=== PATIENT | female | born 1985 | race Caucasian/White ===

== ENCOUNTER 2017-07-05 09:34 | Emergency (ER) | payer OTHER ==
[2017-07-05 11:00] VITALS: BP 95/63
--- NOTE | 2017-07-05 11:16 | UC ---
Respiratory Complaint HPI - HPI Summary HPI Summary: cough x 7 days nasal congestion , bilateral ear fullness, no fever, no chills - History of Current Complaint Chief Complaint: UCGeneralIllness Stated Complaint: COUGH SORE THROAT EARS Time Seen by Provider: 07/05/17 10:54 Hx Obtained From: Patient Hx Last Menstrual Period: 07/03/17 Onset/Duration: Gradual Onset Timing: Constant Severity Initially: Moderate Severity Currently: Moderate Pain Intensity: 4 Character: Cough: Nonproductive Aggravating Factors: Exertion, Deep Breaths Associated Signs And Symptoms: Positive: URI, Nasal Congestion. Negative: Fever , Chills, Dizziness, Calf Pain, Calf Swelling, Edema - Allergies/Home Medications Allergies/Adverse Reactions: Allergies Allergy/AdvReac Type Severity Reaction Status Date / Time MS Acetaminophen AdvReac itching, Verified 07/05/17 10:53 [From Tylenol with Codeine swelling #3] in hands MS Codeine AdvReac itching, Verified 07/05/17 10:53 [From Tylenol with Codeine swelling #3] in hands Home Medications: Home Medications Naproxen TAB* [Naprosyn 250 mg TAB*] 500 mg PO BID PRN 07/05/17 [History Confirmed 07/05/17] PMH/Surg Hx/FS Hx/Imm Hx Previously Healthy: Yes - Surgical History Surgical History: Yes Surgery Procedure, Year, and Place: carpal tunnel/bilat. - Family History Known Family History: Positive: None Negative: Respiratory Disease - Social History Alcohol Use: Rare Substance Use Type: None Smoking Status (MU): Heavy Every Day Tobacco Smoker Type: Cigarettes Amount Used/How Often: 1/2 PPD Length of Time of Smoking/Using Tobacco: Since Age 14 Household Exposure Type: Cigarettes - Immunization History Most Recent Influenza Vaccination: [id number] Review of Systems Constitutional: Negative Skin: Negative Eyes: Negative ENT: Nasal Discharge Respiratory: Cough Cardiovascular: Negative Gastrointestinal: Negative Is Patient Immunocompromised?: No All Other Systems Reviewed And Are Negative: Yes Physical Exam Triage Information Reviewed: Yes Appearance: Well-Appearing, No Pain Distress, Well-Nourished Vital Signs: Initial Vital Signs Temp 98.6 F 07/05/17 10:52 Pulse 98 07/05/17 10:52 Resp 18 07/05/17 10:52 BP 95/63 07/05/17 10:52 Pulse Ox 98 07/05/17 10:52 Vital Signs Reviewed: Yes Eyes: Positive: Conjunctiva Clear ENT: Positive: Normal ENT inspection, Hearing grossly normal, Pharynx normal, Nasal drainage, TMs normal Neck exam: Normal Neck: Positive: Supple, Nontender, No Lymphadenopathy Respiratory: Positive: Chest non-tender, Lungs clear, Normal breath sounds, No respiratory distress Cardiovascular: Positive: RRR, No Murmur, Pulses Normal Skin Exam: Normal UC Diagnostic Evaluation - Laboratory O2 Sat by Pulse Oximetry: 98 Respiratory Course/Dx - Differential Dx/Diagnosis Provider Diagnoses: uri Discharge - Discharge Plan Condition: Stable Disposition: HOME Patient Education Materials: Upper Respiratory Infection (ED) Referrals: KYLAH Ta [Primary Care Provider] - If Needed
== END 2017-07-05 11:18 | disposition home or self-care (01) ==
LOC: UCCORT 09:34
DX: J06.9 Acute upper respiratory infection, unspecified (principal); F17.210 Nicotine dependence, cigarettes, uncomplicated
CPT/HCPCS: 99211; G0463

== ENCOUNTER 2018-11-06 09:05 | Emergency (ER) | payer OTHER ==
[2018-11-06 09:24] VITALS: BP 126/71
--- NOTE | 2018-11-06 09:24 | UC ---
Hand/Wrist HPI - HPI Summary HPI Summary: Patient presents to urgent care for evaluation of her right index finger. Patient states she punched a wall last Tuesday. Patient states has pain with movement since that time. Patient also some edema. No ecchymosis. Patient went to her primary care doctor on Tuesday. Recommended she come for images but she didn't have time she came today. Patient's taken Motrin intermittently was short-term relief. Patient is right-hand dominant. Patient without previous injury to same. Pt states she is not . Patient's medications reviewed this visit. - History Of Current Complaint Stated Complaint: RT HAND INJURY Time Seen by Provider: 11/06/18 09:10 Hx Obtained From: Patient Hx Last Menstrual Period: 07/03/17 - Allergies/Home Medications Allergies/Adverse Reactions: Allergies Allergy/AdvReac Type Severity Reaction Status Date / Time acetaminophen Allergy Unknown ITCHING, Verified 11/06/18 09:26 [From Tylenol-Codeine #3] SWELLING OF HANDS codeine Allergy Unknown ITCHING, Verified 11/06/18 09:26 [From Tylenol-Codeine #3] SWELLING OF HANDS Home Medications: Home Medications Amoxicillin PO (*) [Amoxicillin 500 MG CAP*] 500 mg PO Q12H 11/06/18 [History Confirmed 11/06/18] PMH/Surg Hx/FS Hx/Imm Hx Previously Healthy: Yes - Surgical History Surgical History: Yes Surgery Procedure, Year, and Place: carpal tunnel/bilat. - Family History Known Family History: Positive: None, Non-Contributory Negative: Respiratory Disease - Social History Occupation: Works From/At Home Lives: With Family Alcohol Use: Rare Substance Use Type: None Smoking Status (MU): Heavy Every Day Tobacco Smoker Type: Cigarettes Amount Used/How Often: 1/2 PPD Length of Time of Smoking/Using Tobacco: Since Age 14 Household Exposure Type: Cigarettes - Immunization History Most Recent Influenza Vaccination: [id number] Review of Systems All Other Systems Reviewed And Are Negative: Yes Constitutional: Positive: Negative Skin: Positive: Other - edema right index Musculoskeletal: Positive: Other: - right index pain Is Patient Immunocompromised?: No Physical Exam - Summary Physical Exam Summary: Vital Signs Reviewed: Yes A+Ox3, no distress Eyes: Conjunctiva Clear ENT: Hearing grossly normal neck: supple Respiratory: Positive: No respiratory distress, No accessory muscle use Cardiovascular: skin color reflect adequate perfusion 2+ radial 2+ ulnar CBT < 2 sec all digits Musculoskeletal Exam: + flex/ext wrist No pain MC/C/ MCP all digits except index. Pt with pain with full extension ant MCP and PIP. mild edema. no ecchymosis, no edema + with diffuse tenderness index - no erythema, no open wounds Neurological: Positive: Alert, ambulatory without difficulty + gross sensation throughout fingers Psychological: Positive: Normal Response To Family Skin: Positive: no rash, no ecchymosis Triage Information Reviewed: Yes Vital Signs: Initial Vital Signs Temp 97.3 F 11/06/18 09:18 Pulse 78 11/06/18 09:18 Resp 18 11/06/18 09:18 BP 126/71 11/06/18 09:18 Pulse Ox 100 11/06/18 09:18 Diagnostics - Radiology No standard instances Radiology Interpretation Completed By: Radiologist - Patient Name: ROSE MUJICA Medical Record#: [id number] Ordering Physician: Clarice Isaacs MD Acct.#: [id number] : 1985 Age: 33 Sex: F Location: [facility] Exam Date: 11/06/18929 ADM Status: REG ER Order Information: FINGER RIGHT 2ND ( INDEX) Accession Number: [id number] CPT: 33051 INDICATION: Right index finger injury. TECHNIQUE: 3 views of the right index finger were obtained. FINDINGS: The bones are normal alignment. No fracture is seen. Joint spaces appear maintained. IMPRESSION: NO EVIDENCE FOR FRACTURE. <Electronically signed by Jemal Kelly MD in OV> 11/06/18944 Dictated By: Jemal Kelly MD Dictated Date/Time: 944 Transcribed Date/Time: 11/06/18942 Copy to: CC:Clarice Isaacs MD; Shadia Santo NP Imaging - [facility] [address] [address] ph ) ph ([phone]) ph ([phone]) This report is only to be considered final once signed by the Provider(s) as displayed in the "<Electronically Signed by >" field (s). Absence of a signature indicates the report is in a draft status and still needs to be finalized. In the event this document was created by someone other than the signing Provider, the individual initiating the document will be listed in the "Entered by:" or "Dictated by:" morgan. 1 of 1 Hand/Wrist Course/Dx - Course Course Of Treatment: Pt presents for evaluation of index right hand s/p punching wall on Tuesday. Pt is RHD. Pt with ongoing pain with movement. Pt has taken Motrin with short term relief. Pt denies paresthesia No Pt with pain circumferential right index finger - mild edema, no ecchymosis. imaging no fx splint applied by OMAIRA Nguyễn Q6hr ice elevate f.u with PCP/ortho if sx persist - Differential Dx/Diagnosis Provider Diagnosis: Finger sprain Discharge - Sign-Out/Discharge Documenting (check all that apply): Patient Departure All imaging exams completed and their final reports reviewed: Yes - Discharge Plan Condition: Stable Disposition: HOME Patient Education Materials: Finger Sprain (ED) Referrals: Ghanshyam Padilla MD [Medical Doctor] - (5-7 days if pain persists) Shadia Santo NP [Primary Care Provider] - Additional Instructions: - wear splint as much as possible for comfort and support over the next 4-5 days. -apply ice (20 min at a time) every 2-3 hours for the next 2 days -Okay to alternate ibuprofen (Advil, Motrin) and Tylenol every 3 hours for pain. Take with food. Do NOT take for more than 4-5 days - elevate your hand to help with swelling and pain -contact your primary doctor or the treasury specialist to schedule a follow- up appointment if your pain continues - Billing Disposition and Condition Condition: STABLE Disposition: Home
[2018-11-07 14:24] LABS: HIV 4th Generation Negative (Negative)
== END 2018-11-06 10:16 | disposition home or self-care (01) ==
LOC: UCCORT 09:05
DX: S63.610A Unspecified sprain of right index finger, initial encounter (principal); W22.09XA Striking against other stationary object, initial encounter; F17.210 Nicotine dependence, cigarettes, uncomplicated; Z88.5 Allergy status to narcotic agent
CPT/HCPCS: 36415; 73140; 86703; 87389; 99212; G0463

== ENCOUNTER 2019-05-23 10:34 | Emergency (ER) | payer OTHER ==
[2019-05-23 11:01] VITALS: BP 124/74
--- NOTE | 2019-05-23 11:32 | UC ---
Lower Extremity/Ankle HPI - HPI Summary HPI Summary: 33-year-old female presents with complaints of right fifth toe pain. 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 Describes pain as a constant ache. Worsens with ambulation. Has noted some bruising. Reports previous injury to the toe this past summer. Denies any numbness or tingling. - History of Current Complaint Chief Complaint: UCLowerExtremity Stated Complaint: RT PINKY TOE INJURY Time Seen by Provider: 05/23/19 11:31 Hx Obtained From: Patient Hx Last Menstrual Period: 05/21/19 Pain Intensity: 8 - Allergies/Home Medications Allergies/Adverse Reactions: Allergies Allergy/AdvReac Type Severity Reaction Status Date / Time acetaminophen Allergy Unknown ITCHING, Verified 05/23/19 11:01 [From Tylenol-Codeine #3] SWELLING OF HANDS codeine Allergy Unknown ITCHING, Verified 05/23/19 11:01 [From Tylenol-Codeine #3] SWELLING OF HANDS Home Medications: Home Medications Acetaminophen [Tylenol Extra Strength] 2 tab PO ONCE 05/23/19 [History Confirmed 05/23/19] PMH/Surg Hx/FS Hx/Imm Hx Previously Healthy: Yes - Denies significant PMH - Surgical History Surgical History: Yes Surgery Procedure, Year, and Place: carpal tunnel/bilat. - Family History Known Family History: Positive: Non-Contributory - Social History Occupation: Works From/At Home Lives: With Family Alcohol Use: Rare Substance Use Type: None Smoking Status (MU): Heavy Every Day Tobacco Smoker Type: Cigarettes Amount Used/How Often: 1/2 PPD Length of Time of Smoking/Using Tobacco: Since Age 14 Household Exposure Type: Cigarettes - Immunization History Most Recent Influenza Vaccination: [id number] Review of Systems All Other Systems Reviewed And Are Negative: Yes Constitutional: Positive: Negative Skin: Positive: Bruising Respiratory: Positive: Negative Cardiovascular: Positive: Negative Gastrointestinal: Positive: Negative Genitourinary: Positive: Negative Motor: Negative: Weakness Neurovascular: Negative: Decreased Sensation Musculoskeletal: Positive: Other: - See HPI Neurological: Positive: Negative Is Patient Immunocompromised?: No Physical Exam - Summary Physical Exam Summary: GENERAL APPEARANCE: Well developed, well nourished, alert and cooperative, and appears to be in no acute distress. CARDIAC: Normal S1 and S2. No S3, S4 or murmurs. Rhythm is regular. There is no peripheral edema, cyanosis or pallor. Extremities are warm and well perfused. Capillary refill is less than 2 seconds. Peripheral pulses intact. LUNGS: Clear to auscultation without rales, rhonchi, wheezing or diminished breath sounds. ABDOMEN: Positive bowel sounds. Soft, nondistended, nontender. No guarding or rebound. No masses or hepatosplenomegally. MUSKULOSKELETAL: Normal muscular development. Limping gait. EXTREMITIES: Tenderness at the base of the right 5th toe without gross deformity , edema, or ecchymosis. Circulation and sensation intact. SKIN: Skin normal color, texture and turgor with no lesions or eruptions. Triage Information Reviewed: Yes Vital Signs: Initial Vital Signs Temp 98.2 F 05/23/19 10:56 Pulse 83 05/23/19 10:56 Resp 16 05/23/19 10:56 BP 124/74 05/23/19 10:56 Pulse Ox 97 05/23/19 10:56 Vital Signs Reviewed: Yes Diagnostics - Radiology No standard instances Radiology Interpretation Completed By: Radiologist Summary of Radiographic Findings: Order Information: TOE RIGHT 5TH. Clinical history: Injury. COMPARISON: None. TECHNIQUE: 3 radiographic views of the right fifth toe were obtained. FINDINGS: The soft tissues are unremarkable. The bone mineralization is within normal limits. No fracture is identified. Anatomic alignment is maintained. The joint spaces are preserved. IMPRESSION: No fracture identified Lower Extremity Course/Dx - Course Course Of Treatment: 33-year-old female presents with complaints of right fifth toe pain. 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 Describes pain as a constant ache. Worsens with ambulation. Has noted some bruising. Reports previous injury to the toe this past summer. Denies any numbness or tingling. Afebrile. Vital signs stable. On exam patient had some tenderness at the base of the right fifth toe with no gross deformity, edema, or ecchymosis noted. Circulation sensation were intact. X-ray showed no acute fracture or dislocation. Reviewed results with the patient. Recommending conservative treatment for a right fifth toe contusion including over-the- counter analgesics and RICE. She is to follow-up with her primary care provider in 7 days if symptoms do not improve. Anticipatory guidance warning symptoms were reviewed with the patient. Verbalizes understanding and agrees with plan of care. - Differential Dx/Diagnosis Differential Diagnosis/HQI/PQRI: Contusion, Dislocation, Fracture (Closed), Sprain Provider Diagnosis: Contusion of fifth toe of right foot Discharge ED - Sign-Out/Discharge Documenting (check all that apply): Patient Departure All imaging exams completed and their final reports reviewed: Yes - Discharge Plan Condition: Stable Disposition: HOME Patient Education Materials: Foot Contusion (ED) Referrals: Shadia Santo NP [Primary Care Provider] - 7 Days (If no improvement.) Additional Instructions: The x-ray performed in the clinic today showed no evidence of a fracture. Rest the foot as much as possible. Apply ice to the affected area for 15-20 minutes at least 4 times a day to help with the pain and swelling. Elevate the foot to help reduce swelling. Take acetaminophen (Tylenol) or ibuprofen (Advil, Motrin) according to directions as needed for pain. Follow up with primary care provider in 7 days if symptoms do not improve. Seek immediate medical attention if you have severe pain not managed with pain medication, you are unable to walk or bear any weight, develop numbness or tingling in the foot or toe(s), or have any worsening of symptoms. - Billing Disposition and Condition Condition: STABLE Disposition: Home - Attestation Statements Provider Attestation: Per institutional requirements, I have reviewed the chart, however, I was not consulted specifically or made aware of this patient by the midlevel provider. I did not personally evaluate, interact with , or disposition this patient.
== END 2019-05-23 12:07 | disposition home or self-care (01) ==
LOC: UCCORT 10:34
DX: S90.121A Contusion of right lesser toe(s) without damage to nail, initial encounter (principal); F17.210 Nicotine dependence, cigarettes, uncomplicated; Z88.5 Allergy status to narcotic agent; W22.8XXA Striking against or struck by other objects, initial encounter; Y92.9 Unspecified place or not applicable
CPT/HCPCS: 99211; G0463